=== PATIENT | female | born 1965 | race African-American/Black ===

== ENCOUNTER 2019-12-28 12:40 | Outpatient (CLI) | payer MEDICAID ==
[~2019-12-28] VITALS: Ht 160 cm; Wt 96.6 kg
[2019-12-28 13:37] VITALS: BP 151/68
--- NOTE | 2019-12-28 15:30 | Consultation ---
DATE OF CONSULTATION: 12/28/2019 CONSULTING PHYSICIAN: Duane Givens MD. CHIEF COMPLAINT: Abdominal pain. HISTORY OF PRESENT ILLNESS: This is a very pleasant 54-year-old female with numerous medical problems, which I will dictate in a second, who came to our office with complaint of abdominal pain. The pain is mostly periumbilical area, radiates to the right side. It has been going on for a few months, it come acutely like a spasm, 8/10, lasts for maybe a few minutes, maybe 5 to 10 minutes and goes away. The patient denies any nausea, vomiting, dysphagia, or odynophagia. No melena. No hematochezia. No constipation. No diarrhea. PAST MEDICAL HISTORY: 1. History of sciatica. 2. History of breast cancer. 3. GERD. 4. Hypertension. 5. Coronary artery disease. 6. Arthritis. PAST SURGICAL HISTORY: 1. Appendectomy. 2. Bilateral breast mastectomy. MEDICATIONS: Please see the long medication reconciliation list. FAMILY HISTORY: Mother had throat cancer and lung cancer. SOCIAL HISTORY: The patient drinks alcohol socially and smokes six cigarettes per day. Denies any IV drug abuse. ALLERGIES: No known drug allergies. REVIEW OF SYSTEMS: Positive for abdominal pain, GERD, bloating. PHYSICAL EXAMINATION: VITAL SIGNS: Temperature 97.8, blood pressure 144/89, pulse is 88, respirations 20. HEENT: Normocephalic and atraumatic. Sclerae anicteric. NECK: Supple. No evidence of obvious lymphadenopathy. CARDIOVASCULAR: Regular rate and rhythm. Plus S1 and S2. LUNGS: Clear to auscultation bilaterally. ABDOMEN: Positive bowel sounds. Soft and nontender. No rebound. No guarding. No peritoneal sign. EXTREMITIES: No cyanosis, no clubbing, no edema. ASSESSMENT AND PLAN: This is a 54-year-old female with abdominal pain suspicious for IBS versus abdominal spasm versus SIBO. According to the patient, possibly had a colonoscopy in July. She is not sure if she had a full colonoscopy because she she was awake, but she did not feel any pain. So, we recommended the patient to bring the original report of her last procedure. Meanwhile, we are going to start the patient on Bentyl 10 mg p.o. b.i.d. one at night before bed and one in the morning to prevent spasm. Also, the patient was given Align probiotics one tablet p.o. daily. The patient to come back in the office in one month with results of these medications treatment and also bring the report of her colonoscopy. Duane Givens M.D. DR: GRICELDA JOB#: [id number] CC:
[2019-12-29] MEDS ORDERED: BIOTIN1 MG PO (14:41)
[2019-12-29] MEDS ORDERED: COMPAZINE10 MG ORAL (14:41)
[2019-12-29] MEDS ORDERED: LISINOPRIL10 MG ORAL (14:41)
[2019-12-29] MEDS ORDERED: CYCLOBENZAPRINE10 MG ORAL (14:41)
[2019-12-29] MEDS ORDERED: ATENOLOL50 MG ORAL (14:41)
[2019-12-29] MEDS ORDERED: VITAMIN D350 MC1 PO (14:41)
[2019-12-29] MEDS ORDERED: VITAMIN D350 MCG PO (14:41)
[2019-12-29] MEDS ORDERED: DICLOFENAC SODI25 MG ORAL (14:41)
[2019-12-29] MEDS ORDERED: GABAPENTIN100 MG ORAL (14:41)
[2019-12-29] MEDS ORDERED: AMLODIPINE BESYL5 MG ORAL (14:41)
[2019-12-29] MEDS ORDERED: EC-NAPROXEN500 MG PO (14:41)
[2019-12-29] MEDS ORDERED: CHLORTHALIDONE25 MG ORAL (14:41)
[2019-12-29] MEDS ORDERED: LANSOPRAZOLE15 MG ORAL (14:41)
[2019-12-29] MEDS ORDERED: TRAMADOL HCL50 MG ORAL (14:41)
== END 2019-12-28 14:40 | disposition home or self-care (01) ==
LOC: PAN 12:40
DX: R10.9 Unspecified abdominal pain (principal); K21.9 Gastro-esophageal reflux disease without esophagitis; M19.90 Unspecified osteoarthritis, unspecified site; I25.10 Atherosclerotic heart disease of native coronary artery without angina pectoris; I11.9 Hypertensive heart disease without heart failure; Z85.3 Personal history of malignant neoplasm of breast; Z90.89 Acquired absence of other organs; Z90.13 Acquired absence of bilateral breasts and nipples; F17.210 Nicotine dependence, cigarettes, uncomplicated; R14.0 Abdominal distension (gaseous)
CPT/HCPCS: G0463